=== PATIENT | female | born 1975 | race Caucasian/White ===

== ENCOUNTER 2017-09-01 10:05 | Day surgery (SDC) | payer OTHER ==
[~2017-09-01] VITALS: Ht 157.5 cm; Wt 89.8 kg
[~2017-09-01 10:05] MED LIST: CALCIUM 600 +1 EAC3 PO; CITALOPRAM HBR20 MG PO; ESTRADIOL42.5 GM TOP; IBUPROFEN800 MG PO; NEURONTIN300 MG PO; PERCOCET 5-3251 EACH PO; PERCOCET 7.5-31 EACH PO; SPRINTEC1 EACH PO; VITAMIN B122500 MCG PO
--- NOTE | 2017-09-01 14:31 | NUR ---
09/01/17 1431 Viviana Encinas 1425-PATIENT ARRIVED TO PACU ON 6L MASK O2 SAT 97% PATIENT NONAROUSABLE. NIKKI PAD AND MESH UNDERWEAR IN PLACE CDI. ORAL AIRWAY IN PLACE. ST 1427-PATIENT AROUSING TO VERBAL STIMULI OPENING EYES ORAL AIRWAY REMOVED. 6L MASK O2 SAT 96%
[2017-09-01] MEDS ORDERED: IBUPROFEN800 MG PO (15:40)
[2017-09-01] MEDS ORDERED: NORCO 5-325 TA1 EACH PO (15:40)
--- NOTE | 2017-09-01 16:28 | NUR ---
PT ASSISTED UP OOB TO THE BATHROOM. SHE IS ABLE TO URINATE 300ML OF BLOOD URINE. SHE REQUESTS A NEW PERIPAD. SHE IS HELPED BACK TO BED. AT THIS TIME THE PT HAS MET DC CRITERIA
--- NOTE | 2017-09-01 17:09 | NUR ---
PT IS GIVEN DC INSTRUCTIONS WITH HER PRESENT, VERBALLY. PT'S WERE GIVEN THE OPPORTUNITY TO ASK ANY QUESTIONS. PT IS TAKEN TO THE VEHICLE VIA WHEELCHAIR.
--- NOTE | 2017-09-14 15:02 | OR ---
[facility] [place] [facility] [address] [place] [address] Signed DATE OF OPERATION: 09/01/2017 SURGEON: Noemi Thompson MD PREOPERATIVE DIAGNOSIS: Vulvar vestibulitis. POSTOPERATIVE DIAGNOSIS: Vulvar vestibulitis. PROCEDURE: Vestibulectomy. ANESTHESIA: General LMA. ESTIMATED BLOOD LOSS: 200 mL. DRAINS: None. INDICATIONS AND FINDINGS: The patient is a 42-year-old female, 9, para 2, SAB 7 who has undergone treatment for breast cancer as well as a complete hysterectomy and has been having issues with vestibulitis for the past year. Initially, she had one spot, but over the course of the last couple months, this has grown to include the entire vestibule. She had been tried on some topical estrogen cream as well as some gabapentin without relief and in fact worsening. At this point, she desires vestibulectomy. At the time of surgery, exam under anesthesia revealed a bright red area at approximately 7 o'clock and a slightly less erythematous area at 5 o'clock. DESCRIPTION OF PROCEDURE: The patient was prepped and draped in the dorsal lithotomy position. The vestibulectomy was begun at 11 o'clock and carried down to 7 o'clock. The knife was used to score the vestibular skin at the hymenal ring and externally at the distal portion of the fourchette. The skin was superficially removed. Following this, cautery was used to treat some of the bleeding points. A few sutures of 2-0 Vicryl were also used in this area for control of bleeding. The great majority of that bleeding had been controlled. Attention was directed to the patient's left side and the vestibule was removed from 1 Electronically Signed By: NOEMI THOMPSON MD 09/14/17 1502 PATIENT NAME: JACK SINGH OPERATIVE REPORT DATE OF : 77 REPORT #: [id number] PHYSICIAN: NOEMI THOMPSON MD PCP: GUSTAVO HATFIELD DO REPORT IS CONFIDENTIAL AND NOT TO BE RELEASED WITHOUT AUTHORIZATION [facility] [place] [facility] [address] [place], [place] [address] Signed o'clock down to 5 o'clock in the same manner. Again, the skin was superficially scored at the hymenal ring and distally at the vestibular line. Again, it was superficially excised. Bleeding points were controlled with cautery as well as several sutures of 2-0 Vicryl for control of bleeding. The remainder portion was taken from 5 to 7 o'clock again very superficially. These areas were also treated with cautery and interrupted sutures of the 2-0 Vicryl. The skin edges were then reapproximated with a running suture of 3-0 Vicryl. At the conclusion of the procedure, there was no evidence of ongoing bleeding. Good hemostasis was noted. The area was injected with 0.5% Marcaine plain, approximately 10 mL in the surgical areas to aid in pain control. All sponge and needle counts were correct. She tolerated the procedure well and was taken to the recovery room in good condition. MD VERONICA Ambrosio/DOMINGO /[id number] cc: Gustavo Hatfield DO Copies: UGSTAVO HATFIELD DO ~ Electronically Signed By: NOEMI THOMPSON MD 09/14/17 1502 PATIENT NAME: JACK SINGH OPERATIVE REPORT DATE OF : 77 REPORT #: [id number] PHYSICIAN: NOEMI THOMPSON MD PCP: GUSTAVO HATFIELD DO REPORT IS CONFIDENTIAL AND NOT TO BE RELEASED WITHOUT AUTHORIZATION
== END 2017-09-01 17:05 | disposition home or self-care (01) ==
LOC: DS 10:05
PROVIDERS: Obstetrics & Gynecology
PROC: 0UBM0ZZ Excision of Vulva, Open Approach (ICD-10-PCS; principal; 2017-09-01 13:45)
DX: N94.810 Vulvar vestibulitis (principal); E66.9 Obesity, unspecified; F32.9 Major depressive disorder, single episode, unspecified; Z90.710 Acquired absence of both cervix and uterus; Z90.79 Acquired absence of other genital organ(s); Z79.899 Other long term (current) drug therapy; Z68.36 Body mass index [BMI] 36.0-36.9, adult; G43.009 Migraine without aura, not intractable, without status migrainosus
CPT/HCPCS: 85025; J2250; J2704; J2765; J3010; J7120

== ENCOUNTER 2023-09-16 07:20 | Day surgery (SDC) | payer OTHER ==
[2023-09-07 16:38] VITALS: BP 131/92
[~2023-09-16] VITALS: Ht 157.5 cm; Wt 90.9 kg
[~2023-09-16 07:20] MED LIST changes: +NORCO 5-325 TA1 EACH PO
[2023-09-16] MEDS ORDERED: CEFAZOLIN SODIUM 2 GM/20 ML SYR IV SCH (07:30)
[2023-09-16] MEDS ORDERED: HEParin SOD (PORCINE) 5,000 UNIT/0.5 ML SYR SUB-Q SCH (07:30)
[2023-09-16] MEDS ORDERED: LACTATED RINGER'S 1,000 ML IV SCH ×2 (07:30→16:15)
[2023-09-16] MEDS ORDERED: IBLOOD GLUCOSE TEST STRIP 1 EA TEST VI PRN ×2 (07:30→14:30)
[2023-09-16] MEDS ORDERED: LIDOCAINE HCL 1% 5 ML SDV INJ ONE (07:30)
[2023-09-16 07:34] VITALS: BP 115/69
[2023-09-16] MEDS ORDERED: LIDOCAINE HCL 1% 30 ML SDV ONE (09:35)
[2023-09-16] MEDS ORDERED: MIDAZOLAM HCL 2 MG/2 ML VIAL ONE (09:35)
[2023-09-16] MEDS ORDERED: KETOROLAC TROMETHAMINE 30 MG/ML VIAL ONE (09:35)
[2023-09-16] MEDS ORDERED: ondansetron HCL 4 MG/2 ML VIAL ONE (09:35)
[2023-09-16] MEDS ORDERED: propofoL 200 MG/20 ML VIAL ONE (09:35)
[2023-09-16] MEDS ORDERED: DEXAMETHASONE SOD PHOS 4 MG/ML VIAL ONE (09:35)
[2023-09-16] MEDS ORDERED: KETAMINE in NS 50 MG/5 ML SYR ONE (09:35)
[2023-09-16] MEDS ORDERED: dexmedeTOMIDine HCl 200 MCG/2 ML VIAL ONE (09:35)
[2023-09-16] MEDS ORDERED: ePHEDrine sulfate 50 MG/ML AMP ONE ×2 (09:40→13:21)
[2023-09-16] MEDS ORDERED: LACTATED RINGER'S 1,000 ML IV ONE ×2 (10:05→13:22)
[2023-09-16] MEDS ORDERED: ACETAMINOPHEN 1,000 MG/100 ML VIAL ONE (12:10)
[2023-09-16] MEDS ORDERED: fentaNYL citrate 100 MCG/2 ML VIAL ONE (12:45)
[2023-09-16] MEDS ORDERED: droPERidol 5 MG/2 ML VIAL ONE (13:38)
[2023-09-16] MEDS ORDERED: NALOXONE HCL 0.4 MG SYR IV PRN ×2 (14:30→16:15)
[2023-09-16] MEDS ORDERED: ondansetron HCL 4 MG/2 ML VIAL IV PRN (14:30)
[2023-09-16] MEDS ORDERED: fentaNYL citrate 50 MCG/ML SDV IV PRN (14:30)
[2023-09-16] MEDS ORDERED: OXYCODON-ACETA1 EAC2 PO (14:44)
[2023-09-16] MEDS ORDERED: ACETAMINOPHEN500 MG PO (14:44)
[2023-09-16] MEDS ORDERED: IBUPROFEN600 MG PO (14:44)
[2023-09-16 15:31] VITALS: BP 103/60
[2023-09-16] MEDS ORDERED: OXYCODONE/APAP 7.5/325 TAB PO PRN (16:15)
[2023-09-16] MEDS ORDERED: IBUPROFEN 600 MG TAB PO PRN (16:15)
[2023-09-16] MEDS ORDERED: ACETAMINOPHEN 500 MG TAB PO PRN (16:15)
[2023-09-16 16:22] VITALS: BP 104/70
[2023-09-17] MEDS ORDERED: CEFAZOLIN SODIUM 2 GM/20 ML SYR IV SCH (07:00)
[2023-09-17] MEDS ORDERED: HEParin SOD (PORCINE) 5,000 UNIT/0.5 ML SYR SUB-Q SCH (07:00)
--- NOTE | 2023-09-18 08:28 | OR ---
[facility] [address] [place], [place] [address] Signed DATE OF OPERATION: 09/16/2023 SURGEON: Austyn Rob MD PREOPERATIVE DIAGNOSES: 1. Left upper outer quadrant infiltrating ductal breast cancer, ER/AR positive, HER-2/brandon negative. 2. Distant history (2015) right infiltrating ductal carcinoma without sign of recurrence. POSTOPERATIVE DIAGNOSES: 1. Clinically positive sentinel lymph node biopsies x2. 2. Larger than expected tumor involved in the upper outer aspect of the left breast. PROCEDURES: 1. Injection of methylene blue dye for sentinel lymph node identification. 2. Deep axillary sentinel lymph node biopsies 2+. 3. Left needle localized upper outer quadrant partial mastectomy left side. ANESTHESIA: General LMA, Sheri Carrillo CRNA and Collins Stuart CRNA. INDICATION: This 48-year-old white woman is known to me from the past in 2016, having undergone right partial mastectomy. sentinel lymph node biopsy and subsequent radiation therapy and hormone manipulation therapy. She has done well in that regard. She was more recently noted to have an abnormal mammogram on the left side. The biopsy was performed confirming infiltrating ductal carcinoma, which is ER/AR positive, HER-2/brandon negative. There is no discernible mass in the left breast. Both right and left breasts are somewhat dense. There is no axillary adenopathy. She does have some obesity as part of her physical examination. She is now admitted to undergo left partial mastectomy by needle localization technique and sentinel lymph node biopsies and other indicated procedures. Risks of bleeding, infection, need for additional surgery, and absolute plan for postoperative radiation therapy have been reviewed with the patient and her family. She understands and wished to proceed. FINDINGS: A good uptake of radionuclide to the dominant sentinel lymph node was noted. Upon injection of methylene blue dye marked arborization of the left breast was noted, which is sometimes suggestive of lymphatic congestion. Left axillary lymph nodes that were avid for radionuclide were minimally avid for blue dye it is noted and two of the Electronically Signed By: AUSTYN ROB MD 09/18/23 0828 PATIENT NAME: JACK SINGH OPERATIVE REPORT DATE OF : 77 REPORT #: [id number] PHYSICIAN: AUSTYN ROB MD PCP: GILBERT THOMPSON MD REPORT IS CONFIDENTIAL AND NOT TO BE RELEASED WITHOUT AUTHORIZATION [facility] [address] [place], [place] [address] Signed dominant ones excised were quite firm and quite large, certainly greater than 2 cm each. There may be other additional sentinel lymph nodes excised. The remaining axilla did not have clinically suspicious nodes. However, I do believe it is probable that she does have axillary spread of disease. As regards to the neoplasm in the upper outer aspect of the left breast upon dissection into the parenchyma of the breast, a very dense mass was noted far bigger than visualized on mammography and wide resection undertaken. It is likely that the primary tumor is larger than 3 cm, I do not know for certain. Wide resection was undertaken, margins are uncertain at this time. Specimen radiograph confirmed that the marking clip as well as the wire was within the substance of the breast containing the tumor of radiologic appearance. DESCRIPTION OF PROCEDURE: The patient was brought to the operating room, given a general LMA type anesthetic. The needle emanated from the outer aspect of the left breast. Palpation of the breast revealed no distinct mass. The axilla was clinically negative as before. 0.5 mL of methylene blue dye was injected in the subepithelial space in the upper outer aspect on the left side, which caused immediate arborization throughout the most of the breast. This is often a sign of lymphatic congestion it is acknowledged. The wire emanating from the upper outer aspect. A spray Betadine solution preparation was undertaken of the left breast and axilla and the area was sterilely draped. Using the gamma probe the left axilla was interrogated and an area of maximum uptake was identified and a transverse incision was made in the mid axilla. Dissection carried through the dermis with electrocautery. Using blunt and electrocautery dissection, the parenchyma was . There were few blue lymphatic channels but no blue lymph node. Using the probe, further dissection was undertaken ultimately identifying a rather sizable probably 2 cm lymph node which dissected free. This was in the depths of the axilla. This was ultimately excised and found to have avid radioactive tracer uptake and minimal dye only. Additional palpation revealed a much larger node lateral and more superficial, which was similarly excised. Interrogation of the left axilla showed no other areas of maximum uptake of radionuclide nor blue dye. Irrigation was undertaken with sterile water for its tumor lytic effect. Given the extent of dissection and size of lymph nodes excised and so forth and need for application of hemoclips and sutures and some areas of minimal bleeding, the drain was deemed appropriate. Through a separate stab incision, a 7 mm flat Crispin drain was placed into the depths of the axilla. Secured the skin with nylon suture. The wound was closed with interrupted 2-0 Vicryl and running subcuticular 3-0 Vicryl for the skin. Attention was turned towards the breast tumor itself. The wire emanating from the upper outer aspect of the left breast. There is no palpable mass associated with it. An Electronically Signed By: AUSTYN ROB MD 09/18/23 0828 PATIENT NAME: JACK SINGH OPERATIVE REPORT DATE OF : 77 REPORT #: [id number] PHYSICIAN: AUSTYN ROB MD PCP: GILBERT THOMPSON MD REPORT IS CONFIDENTIAL AND NOT TO BE RELEASED WITHOUT AUTHORIZATION [facility] [address] [place], [place] [address] Signed incision was made along the line of skin tension in the upper outer quadrant. Dissection carried through the dermis with electrocautery. The wire was delivered into the wound. The parenchyma was freed from the incision a bit and palpation revealed a very dense mass far bigger than had been anticipated based on radiographic and clinical examination. Wide resection was undertaken with electrocautery. Allis clamps were used to secure the wire to the parenchyma. The tumor itself was far more bulky than predicted by mammogram or clinical exam was widely resected providing a significant amount of breast resection. The parenchyma in the edges of the resected specimen did appear soft and without tumor involvement, though the chance of a positive margin is relatively high in my estimation. No specific area would be likely for further resection without significant breast deformity and certainly need for oncoplastic closure at minimum and possibly need for mastectomy depending on what the pathologic findings are shown to be. Irrigation was used with sterile water for its tumor lytic effect and to better identify vessels for cautery or other methods of hemostasis including 0 Vicryl suture. The parenchyma was reapproximated with interrupted 2-0 Vicryl and the skin closed with running subcuticular 3-0 Vicryl. The specimen had been sent with orientation of a short stitch superior and a long stitch laterally. The radiographic interpretation confirmed that the marker (clip) and wire was in the region of the offending lesion, but it was acknowledged by the radiologist that the lesion itself is far more bulky than anticipated on preoperative imaging or clinical exam. Steri-Strips were applied to the wounds. The drains attached to bulb suction and Acticoat dressing was applied to the incisions as well. She was ultimately extubated and transferred to the recovery room in good condition having suffered no complication. Sponge, needle, and instrument counts were reported as correct x3. MD TASHA Mckinney/LISAL /[id number] cc: Gilbert Thompson MD Electronically Signed By: AUSTYN ROB MD 09/18/23 0828 PATIENT NAME: JACK SINGH OPERATIVE REPORT DATE OF : 77 REPORT #: [id number] PHYSICIAN: AUSTYN ROB MD PCP: GILBERT THOMPSON MD REPORT IS CONFIDENTIAL AND NOT TO BE RELEASED WITHOUT AUTHORIZATION [address] [address] Signed Copies: GILBERT THOMPSON MD ~ Electronically Signed By: AUSTYN ROB MD 09/18/23 0828 PATIENT NAME: JACK SINGH OPERATIVE REPORT DATE OF : [birth year] REPORT #: [id number] PHYSICIAN: AUSTYN ROB MD PCP: GILBERT THOMPSON MD REPORT IS CONFIDENTIAL AND NOT TO BE RELEASED WITHOUT AUTHORIZATION
--- NOTE | 2023-09-20 14:45 | PATH ---
[facility] [address] [place], [place] [address] Signed SPECIMEN(S): A SENTINEL LYMPH NODE # 1 SPECIMEN(S): B SENTINEL LYMPH NODE # 2 SPECIMEN(S): C LEFT BREAST SPECIMEN SOURCE: A. SENTINEL LYMPH NODE # 1 B. SENTINEL LYMPH NODE # 2 C. LEFT BREAST CLINICAL HISTORY: Left breast infiltrating ductal carcinoma FINAL PATHOLOGIC DIAGNOSIS: A. Lymph nodes, sentinel #1, excision: - Four of four lymph nodes with macrometastatic carcinoma (4/4) - Size of largest metastatic deposit: 21 mm - Extranodal extension: Present B. Lymph nodes, sentinel #2, excision: - Two of four lymph nodes with macrometastatic carcinoma (2/4) - Size of largest metastatic deposit: 9 mm - Extranodal extension: Present C. Breast, left, lumpectomy: - Invasive ductal carcinoma, see synoptic report INVASIVE CARCINOMA OF THE BREAST: Resection Applies To: A-C SPECIMEN Procedure: Excision (less than total mastectomy) Specimen Laterality: Left TUMOR Tumor Site: Not specified Histologic Type: Invasive carcinoma of no special type (ductal) Glandular (Acinar) / Tubular Differentiation: Score 3 Nuclear Pleomorphism: Score 3 Mitotic Rate: Score 2 Overall Grade: Grade 3 (scores of 8 or 9) Tumor Size: Greatest dimension of largest invasive focus (Millimeters) - 40 mm Ductal Carcinoma In Situ (DCIS): Present - Positive for extensive intraductal component (EIC) Size (Extent) of DCIS: Estimated size (extent) of DCIS is at least (Millimeters) - 40 mm PATIENT NAME: JACK SINGH PATHOLOGY DATE OF : [birth year] REPORT #: [id number] PHYSICIAN: HELEN RANGEL PCP: GILBERT MARAVILLA MD REPORT IS CONFIDENTIAL AND NOT TO BE RELEASED WITHOUT AUTHORIZATION [facility] [address] [place], [place] [address] Signed Architectural Patterns: Cribriform, Solid Nuclear Grade: Grade III (high) Necrosis: Present, central (expansive "comedo" necrosis) Lymphatic and / or Vascular Invasion: Present - Extensive Microcalcifications: Present in DCIS, Present in invasive carcinoma Treatment Effect in the Breast: No known presurgical therapy MARGINS Margin Status for Invasive Carcinoma: Invasive carcinoma present at margin Margin(s) Involved by Invasive Carcinoma: Anterior - Extensive, Inferior - Unifocal, Medial - Unifocal Distance from Invasive Carcinoma to Posterior Margin: Less than - 1 mm Margin Status for DCIS: DCIS present at margin Margin(s) Involved by DCIS: Medial Distance from DCIS to Posterior Margin: Less than - 1 mm REGIONAL LYMPH NODES Regional Lymph Node Status: Tumor present in regional lymph node(s) Number of Lymph Nodes with Macrometastases - 6 Number of Lymph Nodes with Micrometastases - 0 Number of Lymph Nodes with Isolated Tumor Cells - 0 Size of Largest Lyly Metastatic Deposit - 21 mm Extranodal Extension - Present, greater than 2 mm Total Number of Lymph Nodes Examined (sentinel and non-sentinel): 8 Number of Edcouch Nodes Examined: 8 pTNM CLASSIFICATION (AJCC 8th Edition) Reporting of pT, pN, and (when applicable) pM categories is based on information available to the pathologist at the time the report is issued. As per the AJCC (Chapter 1, 8th Ed.) it is the managing physician's responsibility to establish the final pathologic stage based upon all pertinent information, including but potentially not limited to this pathology report. pT Category: pT2 pN Category: pN2a Breast Biomarker Testing Performed on Previous Biopsy: Estrogen Receptor (ER) Status: Positive (greater than 10% of cells demonstrate nuclear positivity) Percentage of Cells with Nuclear Positivity: 91-100% Progesterone Receptor (PgR) Status: Positive Percentage of Cells with Nuclear Positivity: 10% HER2 (by immunohistochemistry): Negative (Score 1+) Testing Performed on PATIENT NAME: JACK SINGH PATHOLOGY DATE OF : 77 REPORT #: [id number] PHYSICIAN: HELEN PATHOLOGY PCP: GILBERT MARAVILLA MD REPORT IS CONFIDENTIAL AND NOT TO BE RELEASED WITHOUT AUTHORIZATION [address] [address] Signed COMMENT: As part of [facility]' Quality Improvement Program, this case was reviewed by another member of our pathology staff. [facility] MICROSCOPIC EXAMINATION: Histologic sections of all submitted blocks are examined by light microscopy. These findings, together with the gross examination, support the pathologic diagnosis. GROSS DESCRIPTION: A. The specimen, labeled and designated "Derian, sentinel lymph node #1," is received in formalin and consists of irregular shaped yellow-mei fibroadipose tissue fragment that measure 4.5 x 4.0 x 1.5 cm. Specimen is marked with undesignated black stitch. Sectioning through the specimen reveals four pink-mei, possible lymph nodes that range in size from 0.2 to 2.6 cm in greatest dimension. Cassette Summary: (A1) three possible lymph nodes, entirely submitted (A2-A3) one possible lymph node, sectioned, entirely submitted B. The specimen, labeled and designated "Derian, sentinel lymph node #2," is received in formalin and consists of irregular shaped yellow-mei fibroadipose tissue fragment that measure 5.3 x 4.2 x 1.5 cm. Sectioning through the specimen to reveal six pink-mei possible lymph nodes that range in size from 0.4 to 2.5 cm in greatest dimension. Cassette Summary: (B1) four possible lymph nodes, entirely submitted, one inked and bisected (B2-B5) one possible lymph node, sectioned and entirely submitted C. The specimen, labeled and designated "Derian, left breast lumpectomy tissue," is received in formalin and consists of irregular shaped yellow-mei fibroadipose tissue fragment that measure 7.5 x 6.5 x 4.0 cm. Through the specimen protruding metal wire. The specimen weight 82 g. Specimen is oriented: Long qatmjn-rzoaish-udowa outer quadrant, short stitch-superior. Specimen is inked as follows. Superior-blue Inferior-green Anterior-yellow Posterior-black Lateral-orange PATIENT NAME: JACK SINGH PATHOLOGY DATE OF : [birth year] REPORT #: [id number] PHYSICIAN: HELEN RANGEL PCP: GILBERT MARAVILLA MD REPORT IS CONFIDENTIAL AND NOT TO BE RELEASED WITHOUT AUTHORIZATION [address] [address] Signed Medial-red The specimen is serially sectioned from medial to lateral in 20 slices. Sectioning through the specimen reveals ill-defined lesion that measure 4.0 x 2.5 x 2.0 cm. Lesion is 1.2 cm from medial margin, 2.2 cm from lateral margin, 0.6 cm from posterior margin, abuts anterior margin, 0.7 cm from superior margin and 2.2 cm from the inferior margin. Sectioning through the lesion reveal romero-mei, gritty surface. A coiled wire biopsy clip is identified in slice #8. Cold ischemic time: 11 minutes Approximate time in formalin: 32 hours and 30 minutes Cassette Summary: (C1) medial margin, perpendicular section (C2) lesion from slice #8 with anterior and posterior margins (C3) inferior margin closest to the lesion (C4) superior margin closest to the lesion (C5-C6) lesion with additional anterior and posterior margins (C7) lesion, additional section (C8) lateral margin, perpendicular section JS (under the direct supervision of a pathologist) The Gross Description was prepared using a voice recognition system. The report was reviewed for accuracy; however, sound-alike word errors, addition and/or deletions may occur. If there is any question about this report, please contact Client Services. ADDITIONAL NOTES: Immunohistochemical and/or in situ hybridization studies if performed in this case included appropriate positive controls that reacted as expected. This test was developed and its performance characteristics determined by [facility] [facility]. It has not been cleared or approved by the U.S. Food and Drug Administration. The FDA has determined that such clearance or approval is not necessary. This test is used for clinical purposes. It should not be regarded as investigational or for research. [facility] is certified under the Clinical Laboratory Improvement Amendments of 1988 (CLIA) as qualified to perform high complexity clinical laboratory testing. PERFORMING LABORATORY: Technical component was performed by [facility], [address] [place] [address] (CLIA# [id number]). Professional interpretation was performed by [facility] [place], [facility] PATIENT NAME: JACK SINGH PATHOLOGY DATE OF : [birth year] REPORT #: [id number] PHYSICIAN: HELEN PATHOLOGY PCP: GILBERT MARAVILLA MD REPORT IS CONFIDENTIAL AND NOT TO BE RELEASED WITHOUT AUTHORIZATION [address] [address] [place] [address] (CLIA#: [id number]). Diagnostician: Eleazar Antoine MD Pathologist Electronically Signed 09/20/2023 Copies: ~ PATIENT NAME: JACK SINGH PATHOLOGY DATE OF : [birth year] REPORT #: [id number] PHYSICIAN: HELEN PATHOLOGY PCP: GILBERT MARAVILLA MD REPORT IS CONFIDENTIAL AND NOT TO BE RELEASED WITHOUT AUTHORIZATION
== END 2023-09-16 17:20 | disposition home or self-care (01) ==
LOC: DS 07:20
PROVIDERS: ATTEND Surgery
PROC: 0HBU0ZZ Excision of Left Breast, Open Approach (ICD-10-PCS; principal; 2023-09-16 10:30)
PROC: 07B60ZX Excision of Left Axillary Lymphatic, Open Approach, Diagnostic (ICD-10-PCS; 2023-09-16 10:30)
DX: C50.412 Malignant neoplasm of upper-outer quadrant of left female breast (principal); C77.3 Secondary and unspecified malignant neoplasm of axilla and upper limb lymph nodes; Z17.0 Estrogen receptor positive status [ER+]; C50.411 Malignant neoplasm of upper-outer quadrant of right female breast; Z78.0 Asymptomatic menopausal state
CPT/HCPCS: 00400; 19285; 76098; 77065; 78195; A9541; J0131; J0690; J1100; J1644; J1790; J1885; J2250; J2405; J2704; J3010; J3490; J7121; Q9968

== ENCOUNTER 2024-09-23 01:27 | Emergency (ER) | payer OTHER ==
[~2024-09-23] VITALS: Ht 154.9 cm; Wt 85.8 kg
[~2024-09-23 01:27] MED LIST changes: +ACETAMINOPHEN500 MG PO; +ATIVAN1 MG PO; +DEXAMETHASONE4 MG PO; +FAMOTIDINE20 MG PO; +IBUPROFEN600 MG PO; +NEURONTIN400 MG PO; +ONDANSETRON ODT8 MG PO; +OXYCODON-ACETA1 EAC2 PO
--- OUTSIDE RECORDS SUMMARY | 2024-09-23 01:29 | XMS ---
PreManage Notification: JACK SINGH Security Hospice Chaplain Events No recent Security Events currently on file CRITERIA MET - [facility] - 2 Visits in 30 Days CARE PROVIDERS NICK HATFIELD Internal Medicine Current PHONE: Unknown Geeta has no Care Guidelines for this patient. Serge VISIT COUNT (12 MO.) [address] [place], [place] [address]Magali TOTAL 2 NOTE: Visits indicate total known visits. ED/UCC VISIT TRACKING (12 MO.) 09/23/2024 01:27 [facility] TYPE: Emergency COMPLAINT: - FLANK PAIN 09/14/2024 09:01 [facility] TYPE: Emergency DIAGNOSES: - Elevated white blood cell count, unspecified - Other specified health status - Evaluation Of Abnormal Diagnostic Test INPATIENT VISIT TRACKING (12 MO.) No inpatient visits to display in this time frame [email or web address]
[2024-09-23] MEDS ORDERED: LETROZOLE2.5 MG PO (02:14)
[2024-09-23] MEDS ORDERED: VERZENIO150 MG PO (02:15)
[2024-09-23 02:20] LABS: BASOPHILS 0.9 % (0-2); EOSINOPHILS 1.8 % (0-6); HEMATOCRIT 36.2 % (35.0-50.0); HEMOGLOBIN 12.7 g/dL (12.0-18.0); LYMPHOCYTES 22.4 % (24-44); MCH 33.9 (27-36); MCHC 35.1 g/dl (30-36); MCV 96.6 fl (81-99); MONOCYTES 9.3 % (0-12); NEUTROPHILS 65.6 % (39-80); PLATELET COUNT 257 K/uL (140-440); RBC 3.75 M/ul (4.3-5.7); RDW 15.4 (10.5-15.0)
[2024-09-23] MEDS ORDERED: HYDROmorphone HCL 1 MG/ML SYR IV ONE (02:30)
[2024-09-23 02:37] LABS: ALBUMIN 3.7 g/dL (3.4-5.0); ALBUMIN/GLOBULIN RATIO 0.9 (1.1-2.4); ANION GAP 13.3 (7-21); BILIRUBIN, TOTAL 0.6 mg/dL (0.2-1.0); BUN/CREATININE RATIO 11.9 (6.0-28.6); CALCIUM 9.5 mg/dL (8.5-10.1); CREATININE, SERUM 1.26 mg/dL (0.55-1.02); POTASSIUM 3.3 mmol/L (3.5-5.1); PROTEIN, TOTAL 7.8 g/dL (6.4-8.2)
[2024-09-23] MEDS ORDERED: ondansetron HCL 4 MG/2 ML VIAL IV ONE (03:00)
[2024-09-23] MEDS ORDERED: droPERidol 5 MG/2 ML VIAL IV ONE (03:15)
[2024-09-23] MEDS ORDERED: ELIQUIS5 MG PO (03:26)
[2024-09-23] MEDS ORDERED: LIDOCAINE HCL 4% 1 EACH PATCH TD ONE (03:30)
[2024-09-23] MEDS ORDERED: KETOROLAC TROMETHAMINE 30 MG/ML VIAL IV ONE (03:30)
[2024-09-23] MEDS ORDERED: PERCOCET 5-3251 EACH PO (03:35)
[2024-09-23] MEDS ORDERED: LIDODERM1 EACH TOP (03:35)
[2024-09-23] MEDS ORDERED: ONDANSETRON ODT8 MG PO (03:37)
[2024-09-23] MEDS ORDERED: APIXABAN 5 MG TAB PO ONE (03:45)
[2024-09-23] MEDS ORDERED: OXYCODONE/ACETAMINOPHEN 1 TAB HOME.PACK PO ONE (03:45)
[2024-09-23] MEDS ORDERED: ONDANSETRON 4 MG HOME.PACK SL ONE (03:45)
[2024-09-23 04:24] VITALS: BP 107/70
[2024-09-23] MEDS ORDERED: LIDOCAINE PATCH REMOVAL 1 EA TD SCH (21:00)
== END 2024-09-23 04:47 | disposition home or self-care (01) ==
LOC: ED 01:27
PROVIDERS: Family Medicine
DX: I26.99 Other pulmonary embolism without acute cor pulmonale (principal); G43.909 Migraine, unspecified, not intractable, without status migrainosus; Z79.899 Other long term (current) drug therapy
CPT/HCPCS: 36415; 71250; 80053; 85025; 87040; 96374; 96375; 99284-25; A9270; J1171; J1790; J1885; J2405